=== PATIENT | male | born 1990 | race African-American/Black ===

== ENCOUNTER 2024-11-01 00:12 | Emergency (ER) | payer SELFPAY ==
[2024-11-01 00:20] VITALS: BP 126/69; PULSE 86; RESP 18; TEMP 98.2; BMI 24.3
[2024-11-01] MEDS ORDERED: levETIRAcetam 500 MG TABLET (FP) PO ONE (00:44)
[2024-11-01] MEDS: levETIRAcetam 500 MG TABLET (FP) PO ONE (00:48)
== END 2024-11-01 00:58 | disposition home or self-care (01) ==
LOC: JER 00:12
DX: H92.01 Otalgia, right ear (principal); Z76.0 Encounter for issue of repeat prescription
CPT/HCPCS: 99282-25